=== PATIENT | male | born 1975 | race Caucasian/White ===

== ENCOUNTER 2020-06-27 13:38 | Emergency (ER) | payer OTHER ==
[~2020-06-27] VITALS: Ht 188 cm; Wt 124.7 kg
[2020-06-27] MEDS ORDERED: Cleocin HCl300 MG PO ×2 (14:45→14:48)
[2020-06-27] MEDS ORDERED: Ultram50 MG PO ×2 (14:45→14:48)
== END 2020-06-27 15:00 | disposition home or self-care (01) ==
LOC: ER 13:38
DX: S61.211A Laceration without foreign body of left index finger without damage to nail, initial encounter (principal); Z23 Encounter for immunization; Z88.1 Allergy status to other antibiotic agents; W31.2XXA Contact with powered woodworking and forming machines, initial encounter
CPT/HCPCS: 12001; 73140; 90471; 90714; 99283-25